=== PATIENT | female | born 1975 | race African-American/Black ===

== ENCOUNTER 2018-08-30 18:27 | Emergency (ER) | payer SELFPAY ==
[~2018-08-30] VITALS: Ht 165.1 cm; Wt 77.2 kg
[2018-08-30 18:38] VITALS: BP 153/105
--- NOTE | 2018-08-30 18:45 | NUR ---
C/O L EYE PAIN X3 HOURS. PT REPORTS THAT SHE WAS CRYING AT A ALL DAY AND THEN HER EYE STARTED BURNING SO SHE REMOVED HER CONTACTS AND HER L EYE CONTINUED TO BURN AND WATER. PT DENIES TRAUMA OR GETTING ANYTHING IN EYE. CONSTANT SHARP PAIN AT 10/10. PT TX WITH VISINE. EYE IS WATERING & RED, PT HAVING A HARD TIME HOLDING EYE OPEN, DENIES VISION CHANGES. BED IN LOW POSTION, SIDE RAIL UP X1. FRIEND AT BEDSIDE.
--- NOTE | 2018-08-30 19:40 | NUR ---
ERMD AT BEDSIDE
[2018-08-30] MEDS ORDERED: HYDROcodone/APAP 5/325 MG 1 TAB TAB PO ONE (19:50)
[2018-08-30] MEDS ORDERED: FLUORESCEIN OPTH STRIP 0.6 MG OP ONE (19:50)
[2018-08-30] MEDS ORDERED: TETRACAINE HCL/PF 0.5% OPTH 4 ML BTL OP ONE (19:50)
[2018-08-30] MEDS ORDERED: ERYTHROMYCIN 0.5% OPTH OINT 1 GM TUBE OP ONE (20:12)
[2018-08-30] MEDS ORDERED: ERYTHROMYCIN 0.5% OPTH OINT 1 GM TUBE ONE (20:53)
[2018-08-30 20:56] VITALS: BP 144/99
--- NOTE | 2018-08-30 20:57 | NUR ---
Patient discharged with v/s stable. Written and verbal after care instructions given and explained. Patient alert, oriented and verbalized understanding of instructions. Ambulatory with steady gait. All questions addressed prior to discharge. ID band removed. Patient advised to follow up with PMD. Rx of VIGAMOX, NORCO given. Patient educated on indication of medication including possible reaction and side effects. Opportunity to ask questions provided and answered.
[2018-08-31] MEDS ORDERED: MOXIFLOXACIN 0.5% OP 3 ML BTL OP SCH (09:00)
== END 2018-08-30 20:56 | disposition home or self-care (01) ==
LOC: MED 18:27
DX: S05.01XA Injury of conjunctiva and corneal abrasion without foreign body, right eye, initial encounter (principal); I10 Essential (primary) hypertension; Z88.8 Allergy status to other drugs, medicaments and biological substances; Z90.710 Acquired absence of both cervix and uterus; Z90.5 Acquired absence of kidney; X58.XXXA Exposure to other specified factors, initial encounter; Y93.89 Activity, other specified; Y92.89 Other specified places as the place of occurrence of the external cause; Y99.8 Other external cause status
CPT/HCPCS: 99284